=== PATIENT | male | born 1965 | race Caucasian/White ===

== ENCOUNTER 2017-06-13 17:51 | Emergency (ER) | payer BC ==
--- NOTE | 2017-06-13 18:07 | EDM.PDOC ---
<Greg Freeman - Last Filed: 06/13/17 18:35> ED HPI GENERAL MEDICAL PROBLEM - General Chief Complaint: Chest Pain Stated Complaint: chest discomfort [id number] Time Seen by Provider: 06/13/17 18:05 Source of Information: Reports: Patient History Limitations: Reports: No Limitations - History of Present Illness INITIAL COMMENTS - FREE TEXT/NARRATIVE: 51 yo white male c/o of Left side chest and neck discomfort today with rapid heart rate @ 3:45 PM lasting 10 seconds. Patient also reports similar episode last week and yesterday. PMHx. DM X 6 years. Pt. admits BS has been running high. Pt. denies left arm or shoulder pain Onset: Today Onset Date: 06/13/17 Onset Time: 15:45 Duration: Hour(s): Location: Reports: Neck, Chest Quality: Reports: Ache Severity: Moderate Improves with: Reports: Rest Associated Symptoms: Reports: No Other Symptoms - Related Data Allergies Allergy/AdvReac Type Severity Reaction Status Date / Time No Known Allergies Allergy Verified 06/13/17 17:58 Home Meds: Home Meds Aspirin [Ecotrin] 81 mg PO DAILY 06/13/17 [History] Lisinopril/Hydrochlorothiazide [Lisinopril-Hctz 10-12.5 mg Tab] 1 each PO DAILY 06/13/17 [History] Multivitamin with Minerals [Multiple Vitamin] 1 tab PO DAILY 06/13/17 [History] Delphia-3/DHA/Epa/Fish Oil [Fish Oil 500 MG Softgel] 1 each PO DAILY 06/13/17 [ History] atorvaSTATin [Lipitor] 10 mg PO BEDTIME 06/13/17 [History] metFORMIN [Glucophage] 500 mg PO DAILY 06/13/17 [History] ED ROS GENERAL - Review of Systems Review Of Systems: See Below Constitutional: Reports: No Symptoms HEENT: Reports: No Symptoms Respiratory: Reports: No Symptoms Cardiovascular: Reports: Chest Pain (also left side neck pain) Endocrine: Reports: No Symptoms GI/Abdominal: Reports: No Symptoms : Reports: No Symptoms Musculoskeletal: Reports: Neck Pain (at same time as chest pain) Skin: Reports: No Symptoms Neurological: Reports: No Symptoms Psychiatric: Reports: No Symptoms Hematologic/Lymphatic: Reports: No Symptoms Immunologic: Reports: No Symptoms ED EXAM, GENERAL - Physical Exam Exam: See Below Exam Limited By: No Limitations General Appearance: Alert, WD/WN, No Apparent Distress Eye Exam: Bilateral Eye: EOMI, PERRL Ears: Normal External Exam Nose: Normal Inspection Throat/Mouth: Normal Inspection, Normal Lips Head: Atraumatic, Normocephalic Neck: Normal Inspection, Supple, Non-Tender, Full Range of Motion Respiratory/Chest: No Respiratory Distress, Lungs Clear Cardiovascular: Normal Peripheral Pulses, No Edema, No Murmur, No Rub, Tachycardia Peripheral Pulses: 2+: Carotid (L), Carotid (R), Radial (L), Radial (R) GI/Abdominal: Normal Bowel Sounds, Soft, Non-Tender Back Exam: Normal Inspection Extremities: Normal Inspection, Normal Range of Motion, Non-Tender Neurological: Alert, Oriented, CN II-XII Intact Psychiatric: Normal Affect, Normal Mood Skin Exam: Warm, Dry Lymphatic: No Adenopathy Course - Vital Signs Last Recorded V/S: Last Vital Signs Temp 99 F 06/13/17 23:05 Pulse 82 06/13/17 23:05 Resp 16 06/13/17 23:05 BP 113/79 06/13/17 23:05 Pulse Ox 98 06/13/17 23:05 - Orders/Labs/Meds Orders: Active Orders 24 hr Category Date Time Status Cardiac Monitoring [RC] . DIRECTED Care 06/13/17 18:06 Active EKG Documentation Completion [RC] STAT Care 06/13/17 18:07 Active EKG Documentation Completion [RC] STAT Care 06/13/17 19:34 Active Oxygen Therapy [RC] PRN Care 06/13/17 18:06 Active Pulse Oximetry [RC] CONTINUOUS Care 06/13/17 18:06 Active Labs: Laboratory Tests 06/13/17 06/13/17 06/13/17 Range/Units 18:05 18:05 18:05 WBC 10.1 H (5.0-10.0) 10^3/uL RBC 5.09 (4.6-6.2) 10^6/uL Hgb 15.4 (14.0-18.0) g/dL Hct 43.7 (40.0-54.0) % MCV 85.9 (80-100) fL MCH 30.3 (27.0-34.0) pg MCHC 35.2 H (33.0-35.0) g/dL Plt Count 313 (150-450) 10^3/uL Neut % (Auto) 59.4 (42.2-75.2) % Lymph % (Auto) 30.3 (20.5-50.1) % Wilcox % (Auto) 7.9 (2-8) % Eos % (Auto) 1.9 (1.0-3.0) % Baso % (Auto) 0.5 (0.0-1.0) % PT 10.4 (9.0-12.0) SEC INR 1.0 (0.9-1.2) APTT 25.9 (22.0-34.0) SEC D-Dimer, Quantitative (0-400) ng/mL Sodium 136 (135-145) mmol/L Potassium 4.1 (3.6-5.0) mmol/L Chloride 99 L (101-111) mmol/L Carbon Dioxide 25.0 (21.0-31.0) mmol/L Anion Gap 16.1 BUN 16 (7-18) mg/dL Creatinine 1.1 (0.6-1.3) mg/dL Est Cr Clr Drug Dosing 76.00 mL/min Estimated GFR (MDRD) > 60 BUN/Creatinine Ratio 14.54 Glucose 127 H (74-105) mg/dL Calcium 9.5 (8.4-10.2) mg/dl Magnesium 1.8 (1.8-2.5) mg/dL Total Bilirubin 1.1 H (0.2-1.0) mg/dL AST 29 (10-42) IU/L ALT 21 (10-60) IU/L Alkaline Phosphatase 42 (42-121) IU/L CK-MB (CK-2) (0.4-4.7) ng/mL Troponin I < 0.02 (0.00-0.02) ng/ml Total Protein 8.2 (6.7-8.2) g/dl Albumin 4.6 (3.2-5.5) g/dl Globulin 3.6 Albumin/Globulin Ratio 1.28 06/13/17 06/13/17 06/13/17 Range/Units 18:05 18:05 22:00 WBC (5.0-10.0) 10^3/uL RBC (4.6-6.2) 10^6/uL Hgb (14.0-18.0) g/dL Hct (40.0-54.0) % MCV (80-100) fL MCH (27.0-34.0) pg MCHC (33.0-35.0) g/dL Plt Count (150-450) 10^3/uL Neut % (Auto) (42.2-75.2) % Lymph % (Auto) (20.5-50.1) % Wilcox % (Auto) (2-8) % Eos % (Auto) (1.0-3.0) % Baso % (Auto) (0.0-1.0) % PT (9.0-12.0) SEC INR (0.9-1.2) APTT (22.0-34.0) SEC D-Dimer, Quantitative < 100 (0-400) ng/mL Sodium (135-145) mmol/L Potassium (3.6-5.0) mmol/L Chloride (101-111) mmol/L Carbon Dioxide (21.0-31.0) mmol/L Anion Gap BUN (7-18) mg/dL Creatinine (0.6-1.3) mg/dL Est Cr Clr Drug Dosing mL/min Estimated GFR (MDRD) BUN/Creatinine Ratio Glucose (74-105) mg/dL Calcium (8.4-10.2) mg/dl Magnesium (1.8-2.5) mg/dL Total Bilirubin (0.2-1.0) mg/dL AST (10-42) IU/L ALT (10-60) IU/L Alkaline Phosphatase (42-121) IU/L CK-MB (CK-2) 2.60 2.30 (0.4-4.7) ng/mL Troponin I (0.00-0.02) ng/ml Total Protein (6.7-8.2) g/dl Albumin (3.2-5.5) g/dl Globulin Albumin/Globulin Ratio 06/13/ Range/Units 22:00 WBC (5.0-10.0) 10^3/uL RBC (4.6-6.2) 10^6/uL Hgb (14.0-18.0) g/dL Hct (40.0-54.0) % MCV (80-100) fL MCH (27.0-34.0) pg MCHC (33.0-35.0) g/dL Plt Count (150-450) 10^3/uL Neut % (Auto) (42.2-75.2) % Lymph % (Auto) (20.5-50.1) % Wilcox % (Auto) (2-8) % Eos % (Auto) (1.0-3.0) % Baso % (Auto) (0.0-1.0) % PT (9.0-12.0) SEC INR (0.9-1.2) APTT (22.0-34.0) SEC D-Dimer, Quantitative (0-400) ng/mL Sodium (135-145) mmol/L Potassium (3.6-5.0) mmol/L Chloride (101-111) mmol/L Carbon Dioxide (21.0-31.0) mmol/L Anion Gap BUN (7-18) mg/dL Creatinine (0.6-1.3) mg/dL Est Cr Clr Drug Dosing mL/min Estimated GFR (MDRD) BUN/Creatinine Ratio Glucose (74-105) mg/dL Calcium (8.4-10.2) mg/dl Magnesium (1.8-2.5) mg/dL Total Bilirubin (0.2-1.0) mg/dL AST (10-42) IU/L ALT (10-60) IU/L Alkaline Phosphatase (42-121) IU/L CK-MB (CK-2) (0.4-4.7) ng/mL Troponin I < 0.02 (0.00-0.02) ng/ml Total Protein (6.7-8.2) g/dl Albumin (3.2-5.5) g/dl Globulin Albumin/Globulin Ratio Meds: Medications Discontinued Medications Generic Name Dose Route Start Last Admin Trade Name Freq PRN Reason Stop Dose Admin Aspirin 324 mg 06/13/17 18:39 06/13/17 18:42 Aspirin PO 06/13/17 18:40 324 mg ONETIME ONE Administration Sodium Chloride 1,000 mls @ 125 mls/hr 06/13/17 18:15 06/13/17 18:19 Normal Saline IV 125 mls/hr ASDIRECTED [facility] Administration - Radiology Interpretation Free Text/Narrative:: Chest X-ray WNL Departure - Departure Disposition: Home, Self-Care 01 Clinical Impression: Anxiety Chest pain Qualifiers: Chest pain type: unspecified Qualified Code(s): R07.9 - Chest pain, unspecified Forms: ED Department Discharge Additional Instructions: rest follow up in clinic this week - My Orders Last 24 Hours: My Active Orders 06/13/17 19:34 EKG Documentation Completion [RC] STAT - Assessment/Plan Last 24 Hours: My Active Orders 06/13/17 19:34 EKG Documentation Completion [RC] STAT <Maris Larkin - Last Filed: 06/14/17 04:41> Course - Re-Assessments/Exams Free Text/Narrative Re-Assessment/Exam: 06/13/17 19:36 To nursing floor for extended ER for repeat EKG and troponin at 2200. 06/14/17 2300 Repeat troponin negative. No acute change on EKG. Discussed results with patient and family. Recommend follow up with PCP this week for further testing. Urgent follow up if chest pain with radiation, sweating or nausea. Departure - Departure Time of Disposition: 22:37 Condition: Good - My Orders Last 24 Hours: My Active Orders 06/13/17 19:34 EKG Documentation Completion [RC] STAT - Assessment/Plan Last 24 Hours: My Active Orders 06/13/17 19:34 EKG Documentation Completion [RC] STAT
[2017-06-13] MEDS ORDERED: Sodium Chloride 0.9% 1,000 ML IV SCH (18:15)
[2017-06-13 18:35] LABS: CHLORIDE,CL 99 mmol/L (101-111); SODIUM,NA 136 mmol/L (135-145)
[2017-06-13] MEDS ORDERED: Aspirin 81 MG Tab.Chew PO ONE (18:39)
[2017-06-13 23:09] VITALS: BP 113/79
--- NOTE | 2017-06-21 10:33 | EKG ---
06/13/2017- EDY ZAZUETA - Standard 12-lead EKG showing normal sinus rhythm, with ventricular rate 74 beatsper minute. Normal DE interval, normal QRS duration with normal axis. No ST-T changes. [facility] /[id number] MTDD
--- NOTE | 2017-06-21 10:33 | EKG ---
06/13/2017- EDY ZAZUETA - This is a standard 12-lead EKG. The standard 12-lead EKG showed ventricular rate of 106 beats per minute. Sinus tachycardia. Multiple ventricular premature complexes with some ST elevation into the precordial leads. No significant ST-T changes into the limb leads. Normal QT and QTc duration. [facility] /[id number] [facility]
== END 2017-06-13 23:10 | disposition home or self-care (01) ==
LOC: DL.ED 17:51
DX: R07.9 Chest pain, unspecified (principal); F41.9 Anxiety disorder, unspecified; E11.9 Type 2 diabetes mellitus without complications; Z79.84 Long term (current) use of oral hypoglycemic drugs; Z79.82 Long term (current) use of aspirin; Z79.899 Other long term (current) drug therapy
CPT/HCPCS: 36415; 71010; 80053; 82553; 83735; 84484; 85025; 85379; 85610; 85730; 93005; 94762; 99285; A9270; J7030

== ENCOUNTER 2018-03-02 06:02 | Day surgery (SDC) | payer BC ==
[~2018-03-02 06:02] MED LIST: Dextrose 5%-0.45% NaCl 1,000 ML IV SCH; Sodium Chloride 0.9% 10 ML Syringe FLUSH PRN
[2018-03-02] MEDS ORDERED: fentaNYL 100 MCG/2 ML SDV IV ONE ×4 (06:03→08:05)
[2018-03-02] MEDS ORDERED: Midazolam 1 MG/ML 2 ML SDV IV ONE ×7 (06:03→08:04)
[2018-03-02] MEDS ORDERED: Midazolam 1 MG/ML 2 ML SDV ONE (06:11)
[2018-03-02] MEDS ORDERED: fentaNYL 100 MCG/2 ML SDV ONE (06:11)
--- NOTE | 2018-03-02 08:54 | OR ---
DATE: 03/02/2018 PROCEDURE: Total colonoscopy, narrow-band imaging, and cold snare polypectomy. INSTRUMENT USED: CF-H180 AL Olympus video colonoscope. PREMEDICATIONS: Fentanyl 125 mcg intravenous, Versed 4 mg intravenous. The procedure was done under pulse oximetry, BP recording, and clinical research monitor. INDICATION: The patient with FIT positive stools. Colonoscopic examination is done for detection of any polypoid lesions and removal, endoscopic hemostasis therapy if needed. DESCRIPTION OF PROCEDURE: Initial rectal exam was unremarkable. Rigid anoscopy was normal. The colonoscope was passed with ease. In the mid sigmoid colon, 8-mm sized pedunculated benign-appearing polyp was noted. NBI views were obtained. Photographs were taken. Cold snare polypectomy was done. The tissue was retrieved and sent for histopathology. Numerous scattered diverticula were noted in the distal left colon along with deformity. The scope was passed with ease up to the ileocecal area. Photographs were taken of the normal-appearing cecum identified by landmarks of appendiceal orifice and double-bulged ileocecal folds. No bleeding was noted from any of the visualized areas at the commencement of the examination. No stricture. No vascular ectasia. No large isolated ulcerations seen. No evidence of diffuse inflammatory bowel disease in the form of friability, contact bleeding, or ulcerations. Probing the proximal sides of folds and flexures using adequate distention and clearing up the stool material, withdrawal of the scope was made. [id number]-yx-[id number] time was over 6 minutes. The bowel preparation was found to be adequate. No bleeding was noted from any of the visualized areas at the completion of examination. IMPRESSION: 1. Diverticulosis. 2. Sigmoid colonic polyp. The patient tolerated the procedure well. [facility] /[id number]
[2018-03-02 11:12] VITALS: BP 112/61
== END 2018-03-02 10:20 | disposition home or self-care (01) ==
LOC: DL.ENDO 06:02
PROVIDERS: ATTEND Internal Medicine Gastroenterology
DX: D12.5 Benign neoplasm of sigmoid colon (principal); K57.30 Diverticulosis of large intestine without perforation or abscess without bleeding; I10 Essential (primary) hypertension; E78.5 Hyperlipidemia, unspecified; E11.9 Type 2 diabetes mellitus without complications; E66.09 Other obesity due to excess calories
CPT/HCPCS: 45385; J2250; J3010; J7042

== ENCOUNTER 2021-01-02 05:23 | Day surgery (SDC) | payer BC ==
[2021-01-02] MEDS ORDERED: fentaNYL 100 MCG/2 ML SDV IV ONE ×5 (05:24→06:48)
[2021-01-02] MEDS ORDERED: Midazolam 1 MG/ML 2 ML SDV IV ONE ×7 (05:24→06:42)
[2021-01-02] MEDS ORDERED: Midazolam 1 MG/ML 2 ML SDV ONE (06:03)
[2021-01-02] MEDS ORDERED: fentaNYL 100 MCG/2 ML SDV ONE (06:03)
--- NOTE | 2021-01-02 07:30 | OR ---
DATE: 01/02/2021 PROCEDURE: Total colonoscopy. INSTRUMENT USED: CF-MC564S Olympus video colonoscope. PREMEDICATIONS: Fentanyl 150 mcg intravenous, Versed 4 mg intravenous. Nasal O2 cannula. The procedure was done under pulse oximetry, BP recording, and mental health worker. 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 Has had increasing constipation recently. Colonoscopic examination is done for detection of any polypoid lesions and removal, endoscopic hemostasis therapy if needed. DESCRIPTION OF PROCEDURE: Initial rectal exam was unremarkable. Rigid anoscopy was normal. The colonoscope was passed with ease. Numerous scattered diverticula were noted in the distal left colon along with deformity. The scope was passed with ease up to the ileocecal area. Photographs were taken of the normal-appearing cecum identified by landmarks of appendiceal orifice and double- bulged ileocecal folds. No bleeding was noted from any of the visualized areas at the commencement of the examination. Bowel preparation was found to be adequate, [place] scale 3 in all the regions, total score 9. No stricture. No vascular ectasia. No large isolated ulcerations seen. No evidence of diffuse inflammatory bowel disease in the form of friability, contact bleeding, or ulcerations. No polyp or tumor mass identified. Probing the proximal sides of the folds and flexures using adequate distention and clearing up the stool material, withdrawal of the scope was made. Cecum to rectum time over 6 minutes. No bleeding was noted from any of the visualized areas at the completion of examination. IMPRESSION: Diverticulosis. The patient tolerated the procedure well. [facility] /[id number]
[2021-01-02 10:10] VITALS: BP 109/62; PULSE 52
== END 2021-01-02 09:03 | disposition home or self-care (01) ==
LOC: DL.ENDO 05:23
PROVIDERS: ATTEND Internal Medicine Gastroenterology
DX: K57.30 Diverticulosis of large intestine without perforation or abscess without bleeding (principal); K59.00 Constipation, unspecified; E78.5 Hyperlipidemia, unspecified; E11.9 Type 2 diabetes mellitus without complications; N20.0 Calculus of kidney; I10 Essential (primary) hypertension; Z90.49 Acquired absence of other specified parts of digestive tract; Z86.010 Personal history of colon polyps; Z98.890 Other specified postprocedural states
CPT/HCPCS: 45378; J2250; J3010; J7042